=== PATIENT | male | born 1980 | race Caucasian/White ===

== ENCOUNTER 2023-05-29 17:29 | Emergency (ER) | payer MEDICARE, MEDICAID, SELFPAY ==
[2023-05-29] VITALS (45 sets, daily range): BP systolic 58–137; BP diastolic 37–115; PULSE 109–121; RESP 18–35; TEMP 37.2–37.5; O2SAT 85–96
--- NOTE | 2023-05-29 18:04 | CT_ITS ---
The [address] [address] Patient Name: JOAO PAYNE MRN: [facility]:[id number] date: 1980 Sex: M Assigned Patient Location: ED.MAIN Current Patient Location: Accession/Order Number: [id number] Exam Date: 05/29/2023 18:25 Report Date: 05/29/2023 19:30 At the request of: KIM MCNULTY Procedure: CT head/brain wo con EXAM: CT head/brain wo con, CT cervical spine wo con, CT facial bones wo con HISTORY: Fall COMPARISON: None. TECHNIQUE: Axial CT scans through the head, facial bones and cervical spine were obtained without IV contrast administration. Dose reduction techniques were achieved by using: automated exposure control and/or adjustment of mA and /or kV according to patient size and/or use of iterative reconstruction technique. CT BRAIN FINDINGS: There is no evidence of acute intracranial hemorrhage or abnormal extra-axial fluid collection. No mass effect or midline shift is seen. There is no evidence of large acute territorial infarction. There is no hydrocephalus. No definite acute fracture is identified. Soft tissues are unremarkable. CT/CT head/brain wo con IMPRESSION: No CT evidence of acute intracranial abnormality. CT FACIAL FINDINGS: There is a slightly displaced noncomminuted fracture of the anterior nasal septum, best seen on axial images (series 13 image 58, 59). The globes are intact bilaterally. There is no retrobulbar hematoma. The soft tissues are unremarkable. The visualized paranasal sinuses show no air-fluid level. There is mild mucosal thickening of bilateral maxillary sinuses and ethmoid air cells. Mastoid air cells are clear. IMPRESSION: Slightly displaced acute noncomminuted fracture of the anterior nasal septum. CT CERVICAL SPINE FINDINGS: No acute fracture or posttraumatic malalignment is seen. There is straightening of the normal cervical lordotic curvature. There are multilevel marginal osteophytes, most prominent at C5-7 levels.. There are mild to moderate multilevel facet arthropathy. There are multilevel small disc osteophyte complexes from C3 through C7 resulting in mild effacement of ventral CSF. No significant central canal narrowing is seen. There are multilevel neural foraminal narrowing, moderate at left C5-6 and mild at right C3-4, right C4-5, right C5-6 levels, secondary to uncovertebral hypertrophy and facet arthropathy. The prevertebral soft tissue space appears normal. Visualized neck shows no adenopathy. There are a few small low-attenuation nodules in left thyroid lobe. Visualized lung apices are clear. IMPRESSION: No acute fracture or posttraumatic malalignment. Straightening of cervical lordosis, may be related to positioning or muscle spasm. Cervical spondylosis, as described. Incidental note of small low-attenuation nodules in left thyroid lobe. Nonemergent thyroid ultrasound is recommended. Electronically authenticated by: ROBB VAZQUEZ Date: 05/29/2023 19:30
--- NOTE | 2023-05-29 18:04 | XR_ITS ---
The [address] [address] Patient Name: JOAO PAYNE MRN: [id number] date: 1980 Sex: M Assigned Patient Location: ED.MAIN Current Patient Location: ER Accession/Order Number: [id number] Exam Date: 05/29/2023 18:25 Report Date: 05/29/2023 19:08 At the request of: KIM MCNULTY Procedure: XR chest 1V EXAMINATION: XR chest 1V HISTORY: Fall COMPARISON: Portable chest 12/15/2022 TECHNIQUE: Portable chest FINDINGS: The lung parenchyma is free of consolidation or infiltrate. No pneumothorax or pleural effusion. The cardiac, mediastinal and hilar contours are normal. The visualized osseous structures exhibit no gross abnormality. XR/XR chest 1V IMPRESSION: No acute cardiopulmonary abnormality. Electronically authenticated by: MICHAEL COX Date: 05/29/2023 19:08
--- NOTE | 2023-05-29 18:04 | CT_ITS ---
The [address] [address] Patient Name: JOAO PAYNE MRN: [facility]:[id number] date: 1980 Sex: M Assigned Patient Location: ED.MAIN Current Patient Location: Accession/Order Number: [id number] Exam Date: 05/29/2023 18:25 Report Date: 05/29/2023 19:30 At the request of: KIM MCNULTY Procedure: CT facial bones wo con EXAM: CT head/brain wo con, CT cervical spine wo con, CT facial bones wo con HISTORY: Fall COMPARISON: None. TECHNIQUE: Axial CT scans through the head, facial bones and cervical spine were obtained without IV contrast administration. Dose reduction techniques were achieved by using: automated exposure control and/or adjustment of mA and /or kV according to patient size and/or use of iterative reconstruction technique. CT BRAIN FINDINGS: There is no evidence of acute intracranial hemorrhage or abnormal extra-axial fluid collection. No mass effect or midline shift is seen. There is no evidence of large acute territorial infarction. There is no hydrocephalus. No definite acute fracture is identified. Soft tissues are unremarkable. CT/CT facial bones wo con IMPRESSION: No CT evidence of acute intracranial abnormality. CT FACIAL FINDINGS: There is a slightly displaced noncomminuted fracture of the anterior nasal septum, best seen on axial images (series 13 image 58, 59). The globes are intact bilaterally. There is no retrobulbar hematoma. The soft tissues are unremarkable. The visualized paranasal sinuses show no air-fluid level. There is mild mucosal thickening of bilateral maxillary sinuses and ethmoid air cells. Mastoid air cells are clear. IMPRESSION: Slightly displaced acute noncomminuted fracture of the anterior nasal septum. CT CERVICAL SPINE FINDINGS: No acute fracture or posttraumatic malalignment is seen. There is straightening of the normal cervical lordotic curvature. There are multilevel marginal osteophytes, most prominent at C5-7 levels.. There are mild to moderate multilevel facet arthropathy. There are multilevel small disc osteophyte complexes from C3 through C7 resulting in mild effacement of ventral CSF. No significant central canal narrowing is seen. There are multilevel neural foraminal narrowing, moderate at left C5-6 and mild at right C3-4, right C4-5, right C5-6 levels, secondary to uncovertebral hypertrophy and facet arthropathy. The prevertebral soft tissue space appears normal. Visualized neck shows no adenopathy. There are a few small low-attenuation nodules in left thyroid lobe. Visualized lung apices are clear. IMPRESSION: No acute fracture or posttraumatic malalignment. Straightening of cervical lordosis, may be related to positioning or muscle spasm. Cervical spondylosis, as described. Incidental note of small low-attenuation nodules in left thyroid lobe. Nonemergent thyroid ultrasound is recommended. Electronically authenticated by: ROBB VAZQUEZ Date: 05/29/2023 19:30
--- NOTE | 2023-05-29 18:04 | CT_ITS ---
The [address] [address] Patient Name: JOAO PAYNE MRN: [facility]:[id number] date: 1980 Sex: M Assigned Patient Location: ED.MAIN Current Patient Location: Accession/Order Number: [id number] Exam Date: 05/29/2023 18:25 Report Date: 05/29/2023 19:30 At the request of: KIM MCNULTY Procedure: CT cervical spine wo con EXAM: CT head/brain wo con, CT cervical spine wo con, CT facial bones wo con HISTORY: Fall COMPARISON: None. TECHNIQUE: Axial CT scans through the head, facial bones and cervical spine were obtained without IV contrast administration. Dose reduction techniques were achieved by using: automated exposure control and/or adjustment of mA and /or kV according to patient size and/or use of iterative reconstruction technique. CT BRAIN FINDINGS: There is no evidence of acute intracranial hemorrhage or abnormal extra-axial fluid collection. No mass effect or midline shift is seen. There is no evidence of large acute territorial infarction. There is no hydrocephalus. No definite acute fracture is identified. Soft tissues are unremarkable. CT/CT cervical spine wo con IMPRESSION: No CT evidence of acute intracranial abnormality. CT FACIAL FINDINGS: There is a slightly displaced noncomminuted fracture of the anterior nasal septum, best seen on axial images (series 13 image 58, 59). The globes are intact bilaterally. There is no retrobulbar hematoma. The soft tissues are unremarkable. The visualized paranasal sinuses show no air-fluid level. There is mild mucosal thickening of bilateral maxillary sinuses and ethmoid air cells. Mastoid air cells are clear. IMPRESSION: Slightly displaced acute noncomminuted fracture of the anterior nasal septum. CT CERVICAL SPINE FINDINGS: No acute fracture or posttraumatic malalignment is seen. There is straightening of the normal cervical lordotic curvature. There are multilevel marginal osteophytes, most prominent at C5-7 levels.. There are mild to moderate multilevel facet arthropathy. There are multilevel small disc osteophyte complexes from C3 through C7 resulting in mild effacement of ventral CSF. No significant central canal narrowing is seen. There are multilevel neural foraminal narrowing, moderate at left C5-6 and mild at right C3-4, right C4-5, right C5-6 levels, secondary to uncovertebral hypertrophy and facet arthropathy. The prevertebral soft tissue space appears normal. Visualized neck shows no adenopathy. There are a few small low-attenuation nodules in left thyroid lobe. Visualized lung apices are clear. IMPRESSION: No acute fracture or posttraumatic malalignment. Straightening of cervical lordosis, may be related to positioning or muscle spasm. Cervical spondylosis, as described. Incidental note of small low-attenuation nodules in left thyroid lobe. Nonemergent thyroid ultrasound is recommended. Electronically authenticated by: ROBB VAZQUEZ Date: 05/29/2023 19:30
--- NOTE | 2023-05-29 18:04 | ECG_ITS ---
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
--- NOTE | 2023-05-29 18:11 | XR_ITS ---
The [address] [address] Patient Name: JOAO PAYNE MRN: [id number] date: 1980 Sex: M Assigned Patient Location: ED.MAIN Current Patient Location: ER Accession/Order Number: [id number] Exam Date: 05/29/2023 18:25 Report Date: 05/29/2023 19:27 At the request of: KIM MCNULTY Procedure: XR hand RT min 3V EXAM: XR hand RT min 3V HISTORY: fall COMPARISON: None. TECHNIQUE: 3 view study FINDINGS: There is a proximal phalanx fracture of the thumb with comminution. At least one fracture line intersects the proximal articular margin. Other bony structures are intact. Joint spaces are satisfactorily maintained. Soft tissue swelling about the thumb is noted. XR/XR hand RT min 3V IMPRESSION: Comminuted proximal phalanx fracture of the thumb. Electronically authenticated by: Florence GARDUNO Date: 05/29/2023 19:27
[2023-05-29] MEDS: 0.9 % SODIUM CHLORIDE 1,000 ML 1000 ML IV ×2 (18:20→22:56)
--- NOTE | 2023-05-29 18:22 | ED_ITS ---
Documented by User: JOSE Nath 05/29/23 22:08 HPI - General Adult General Chief complaint: Fall Stated complaint: FEVER Time Seen by Provider: 05/29/23 18:04 Source: caregiver Source information: Pt lives in a Residence with 24 hour caregivers. Mode of arrival: Wheelchair Limitations: altered mental status and physical limitation History of Present Illness HPI narrative: patient is a 42-year-old male with a history of developmental delay presents to the emergency department with his caregiver for the evaluation of fever, generalized weakness. Caregiver provides the history. apparently the patient had a similar presentation in the past when he had a urinary tract infection. He had a fall several days ago and injured his face, caregiver states he fell again today in the bathroom. He is typically able to ambulate on his own but has required significant help with ambulation today because of his generalized weakness. He is nonverbal but cooperative. Tylenol was given several hours ago for fever. He has not had any vomiting or upper respiratory symptoms. Related Data Home Medications Medication Instructions Recorded Confirmed cetirizine 10 mg tablet 10 mg PO DAILY 05/29/23 05/29/23 divalproex 500 mg tablet,extended 500 mg PO BID 05/29/23 05/29/23 release 24 hr docusate sodium 100 mg capsule 100 mg PO DAILY 05/29/23 05/29/23 levetiracetam 500 mg tablet 500 mg PO BID 05/29/23 05/29/23 lorazepam 1 mg tablet 1 mg PO .Evening daily 05/29/23 05/29/23 olanzapine 10 mg tablet 10 mg PO BID 05/29/23 05/29/23 polyethylene glycol 3350 17 gram 17 g PO DAILY 05/29/23 05/29/23 oral powder packet primidone 50 mg tablet 50 mg PO BID 05/29/23 05/29/23 topiramate 25 mg tablet 25 mg PO BID 05/29/23 05/29/23 Allergies Allergy/AdvReac Type Severity Reaction Status Date / Time codeine AdvReac Mild Verified 05/29/23 22:31 Review of Systems ROS Narrative review of systems is limited by the patient's developmental delay Constitutional Reports: fever Respiratory Denies: shortness of breath or cough Gastrointestinal Denies: nausea or vomiting Integumentary/Breast Denies: rash PFSH PFSH Social History Smoking status: Never smoker Exam Narrative Exam Narrative: Gen.: Awake, alert, in no distress Head: Normocephalic, dried epistaxis to the bilateral nostrils with ecchymosis under the bilateral orbits. ENT: Moist mucous membranes, no injury to the teeth Respiratory: No respiratory distress, lungs clear bilaterally Cardio: tachycardia Gastrointestinal: Abdomen is soft, nondistended and nontender to palpation Extremities: Moves extremities equally, no injuries noted, pelvis is stable, no obvious deformity of the extremities. Right thumb with diffuse ecchymosis at the IP joint. Contractures noted of the hands so range of motion is limited. Psych: Normal mood and affect Neuro: nonverbal, developmentally delayed, cooperative Skin: Warm, dry, intact Constitutional Vital Signs, click to edit/add: Last Vital Signs Temp 99.0 F 05/29/23 19:50 Pulse 121 H 05/30/23 00:50 Resp 33 H 05/30/23 00:50 BP 91/70 05/30/23 00:45 Pulse Ox 96 05/29/23 23:30 O2 Del Method Room Air 05/29/23 19:50 O2 Flow Rate 2 05/29/23 23:30 Course Vital Signs Vital signs: Vital Signs Temperature 99.5 F 05/29/23 17:48 Pulse Rate 121 H 05/29/23 17:48 Respiratory Rate 18 05/29/23 17:48 Pulse Oximetry 96 05/29/23 17:48 Oxygen Delivery Method Room Air 05/29/23 17:48 Temperature 99.0 F 05/29/23 19:50 Pulse Rate 121 H 05/30/23 00:50 Respiratory Rate 33 H 05/30/23 00:50 Blood Pressure 91/70 05/30/23 00:45 Pulse Oximetry 96 05/29/23 23:30 Oxygen Delivery Method Room Air 05/29/23 19:50 Oxygen Delivery Flow Rate 2 05/29/23 23:30 Medical Decision Making MDM Narrative Medical decision making narrative: On arrival to the Emergency Room, patient was treated with 30 mg/kg fluid bolus as well as Tylenol, IV Rocephin for antibiotic coverage. Sepsis orders were completed, blood cultures are pending. We had difficulty obtaining a urine specimen, straight catheter was performed without success so external collection was attempted. Covid swab is negative, chest x-ray with no evidence of acute cardiopulmonary changes. EKG was sinus tachycardia. CT of the head, facial bones and cervical spine were performed showing nasal bone fractures with no other acute process. As the patient remained tachycardic and borderline hypotensive, additional images were ordered of his chest and abdomen and pelvis to rule out other acute abnormalities that may be missed. CTA of the chest shows the patient has no evidence of PE or other acute abnormalities. CT of the abdomen and pelvis with IV contrast shows the patient has significant constipation and fecal impaction. He is also noted to have a fracture of his left femur. Additional x-ray studies are ordered. As a result the patient is not appropriate for this facility and will need to be transferred. 2210: Case is turned over to attending physician for disposition at this time pending additional xrays and transfer. Medical Records Medical records reviewed: Yes I reviewed the patient's medical records Lab Data Lab results reviewed: Yes I reviewed the patient's lab results Labs: Lab Results 05/29/23 05/29/23 05/29/23 Range/Units 18:18 18:24 19:25 WBC 19.9 H (4.0-11.0) 10^3/uL RBC 3.66 L (4.70-6.10) 10^6/uL Hgb 11.3 L (14.0-18.0) g/dL Hct 33.1 L (42.0-54.0) % MCV 90.4 (80.0-94.0) fL MCH 30.9 (25.9-34.0) pg MCHC 34.1 (29.9-35.2) g/dL RDW 15.2 H (11.0-15.0) % Plt Count 175 (150-450) 10^3/uL MPV 10.6 (9.5-13.5) fL Seg Neuts % (Manual) 74.0 Band Neutrophils % 1.0 (0-5) % Lymphocytes % (Manual) 3.0 L (20.5-60.0) % Atypical Lymphs % (Man) 3.0 % Monocytes % (Manual) 13.0 H (1.7-12.0) % Eosinophils % (Manual) 6.0 (0.9-7.0) % Basophils % (Manual) 0.0 L (0.2-2.0) % Neutrophils # (Manual) 14.72 H (1.4-6.5) 10^3/uL Band Neutrophils # 0.2 (0.0-0.3) 10^3/uL Lymphocytes # (Manual) 0.59 L (1.20-3.80) 10^3/uL Abs Atypical Lymphs Man 0.6 Monocytes # (Manual) 2.58 H (0.30-0.80) 10^3/uL Eosinophils # (Manual) 1.19 H (0.00-0.70) 10^3/uL Basophils # (Manual) 0.00 (0.00-0.10) 10^3/uL PT 11.3 (9.0-11.6) sec INR 1.07 APTT 27.3 (22.3-36.2) sec VBG pH 7.422 (7.330-7.430) VBG pCO2 35.5 L (40.0-52.0) mmHg Sodium 139 (136-145) mmol/L Potassium 3.5 (3.5-5.1) mmol/L Chloride 104 (98-107) mmol/L Carbon Dioxide 24.0 (21.0-32.0) mmol/L Anion Gap 14.5 BUN 19.0 H (7.0-18.0) mg/dL Creatinine 1.40 H (0.70-1.30) mg/dL Est GFR ( Amer) >60 (>=60) Est GFR (Non-Af Amer) 55 L (>=60) BUN/Creatinine Ratio 13.6 Glucose 107 H (74-106) mg/dL Lactate 2.3 H* (0.4-2.0) mmol/L Calcium 8.4 L (8.5-10.1) mg/dL Total Bilirubin 0.6 (0.2-1.0) mg/dL AST 460 H (15-37) U/L ALT 294 H (16-63) U/L Alkaline Phosphatase 143 H (46-116) U/L Total Protein 6.6 (6.4-8.2) g/dL Albumin 3.0 L (3.4-5.0) g/dL Globulin 3.6 g/dL Albumin/Globulin Ratio 0.8 SARS-CoV-2 (PCR) Negative (NEGATIVE) SARS-CoV-2 RNA (SUSY) Not detected (NOT DETECTE) 05/29/23 Range/Units 21:49 WBC (4.0-11.0) 10^3/uL RBC (4.70-6.10) 10^6/uL Hgb (14.0-18.0) g/dL Hct (42.0-54.0) % MCV (80.0-94.0) fL MCH (25.9-34.0) pg MCHC (29.9-35.2) g/dL RDW (11.0-15.0) % Plt Count (150-450) 10^3/uL MPV (9.5-13.5) fL Seg Neuts % (Manual) Band Neutrophils % (0-5) % Lymphocytes % (Manual) (20.5-60.0) % Atypical Lymphs % (Man) % Monocytes % (Manual) (1.7-12.0) % Eosinophils % (Manual) (0.9-7.0) % Basophils % (Manual) (0.2-2.0) % Neutrophils # (Manual) (1.4-6.5) 10^3/uL Band Neutrophils # (0.0-0.3) 10^3/uL Lymphocytes # (Manual) (1.20-3.80) 10^3/uL Abs Atypical Lymphs Man Monocytes # (Manual) (0.30-0.80) 10^3/uL Eosinophils # (Manual) (0.00-0.70) 10^3/uL Basophils # (Manual) (0.00-0.10) 10^3/uL PT (9.0-11.6) sec INR APTT (22.3-36.2) sec VBG pH (7.330-7.430) VBG pCO2 (40.0-52.0) mmHg Sodium (136-145) mmol/L Potassium (3.5-5.1) mmol/L Chloride (98-107) mmol/L Carbon Dioxide (21.0-32.0) mmol/L Anion Gap BUN (7.0-18.0) mg/dL Creatinine (0.70-1.30) mg/dL Est GFR ( Amer) (>=60) Est GFR (Non-Af Amer) (>=60) BUN/Creatinine Ratio Glucose (74-106) mg/dL Lactate 1.6 (0.4-2.0) mmol/L Calcium (8.5-10.1) mg/dL Total Bilirubin (0.2-1.0) mg/dL AST (15-37) U/L ALT (16-63) U/L Alkaline Phosphatase (46-116) U/L Total Protein (6.4-8.2) g/dL Albumin (3.4-5.0) g/dL Globulin g/dL Albumin/Globulin Ratio SARS-CoV-2 (PCR) (NEGATIVE) SARS-CoV-2 RNA (SUSY) (NOT DETECTE) Imaging Data CT scan - head: Attestation: I have reviewed the pertinent imaging results. Radiologist's impression: Procedure: CT head/brain wo con EXAM: CT head/brain wo con, CT cervical spine wo con, CT facial bones wo con HISTORY: Fall COMPARISON: None. TECHNIQUE: Axial CT scans through the head, facial bones and cervical spine were obtained without IV contrast administration. Dose reduction techniques were achieved by using: automated exposure control and/or adjustment of mA and /or kV according to patient size and/or use of iterative reconstruction technique. CT BRAIN FINDINGS: There is no evidence of acute intracranial hemorrhage or abnormal extra-axial fluid collection. No mass effect or midline shift is seen. There is no evidence of large acute territorial infarction. There is no hydrocephalus. No definite acute fracture is identified. Soft tissues are unremarkable. IMPRESSION: No CT evidence of acute intracranial abnormality. CT FACIAL FINDINGS: There is a slightly displaced noncomminuted fracture of the anterior nasal septum, best seen on axial images (series 13 image 58, 59). The globes are intact bilaterally. There is no retrobulbar hematoma. The soft tissues are unremarkable. The visualized paranasal sinuses show no air-fluid level. There is mild mucosal thickening of bilateral maxillary sinuses and ethmoid air cells. Mastoid air cells are clear. IMPRESSION: Slightly displaced acute noncomminuted fracture of the anterior nasal septum. CT CERVICAL SPINE FINDINGS: No acute fracture or posttraumatic malalignment is seen. There is straightening of the normal cervical lordotic curvature. There are multilevel marginal osteophytes, most prominent at C5-7 levels.. There are mild to moderate multilevel facet arthropathy. There are multilevel small disc osteophyte complexes from C3 through C7 resulting in mild effacement of ventral CSF. No significant central canal narrowing is seen. There are multilevel neural foraminal narrowing, moderate at left C5-6 and mild at right C3-4, right C4-5, right C5-6 levels, secondary to uncovertebral hypertrophy and facet arthropathy. The prevertebral soft tissue space appears normal. Visualized neck shows no adenopathy. There are a few small low-attenuation nodules in left thyroid lobe. Visualized lung apices are clear. IMPRESSION: No acute fracture or posttraumatic malalignment. Straightening of cervical lordosis, may be related to positioning or muscle spasm. Cervical spondylosis, as described. Incidental note of small low-attenuation nodules in left thyroid lobe. Nonemergent thyroid ultrasound is recommended. Electronically authenticated by: ROBB VAZQUEZ Date: 05/29/2023 19:30 CT scan - chest: Attestation: I have reviewed the pertinent imaging results. Radiologist's impression: Procedure: CT angio chest EXAM: CT pulmonary angiogram of the chest using 100 mL of IV iodinated contrast. 3-D imaging was performed. Dose reduction technique used: Automated exposure control and/or adjustment of the mA and/or kV according to patient size and/or use of iterative reconstruction technique. REASON FOR EXAM: PE COMPARISON: None FINDINGS: No central or segmental pulmonary emboli. Respiratory motion artifact prevents adequate evaluation of the subsegmental pulmonary artery branches. No aortic dissection. No pneumothorax. No acute airspace opacities. No pleural effusion. No acute fractures. No concerning pulmonary nodules. No definite lymphadenopathy in the chest. Remainder unremarkable. IMPRESSION: No central or segmental pulmonary embolism or acute abnormalities in chest. Electronically authenticated by: NACHO ESCOBAR Date: 05/29/2023 21:36 CT scan - abdomen: Attestation: I have reviewed the pertinent imaging results. Radiologist's impression: Procedure: CT abdomen pelvis w con EXAMINATION: CT ABDOMEN AND PELVIS WITH IV CONTRAST CLINICAL HISTORY: Fever TECHNIQUE: CT of the abdomen and pelvis was performed using standard technique, scanning from just above the dome of the diaphragm to the symphysis pubis. All CT scans at this facility use dose modulation, iterative reconstruction, and/or weight based dosing when appropriate to reduce radiation dose to as low as reasonably achievable. Contrast: IV: 100 ml of Omnipaque 350 COMPARISON: None. RESULT: Liver: No mass. Biliary: No bile duct dilation. Gallbladder is unremarkable. Spleen: No mass. No splenomegaly. Pancreas: No mass or duct dilation. Adrenals: No mass. Kidneys: Renal atrophy with left kidney compensatory hypertrophy. No suspicious mass or abnormal focus of enhancement. 11 mm left inferior pole simple cyst. No renal calculi or hydronephrosis. GI tract: Extensive colonic stool with fecal impaction and rectal dilation up to 11 cm. Mild rectal wall thickening with mild surrounding soft tissue stranding, concerning for stercoral colitis. Appendix is unremarkable. Lymph nodes: No abdominal or pelvic lymphadenopathy. Mesentery/Peritoneum: No ascites or mass. Retroperitoneum: No mass. Vasculature: The celiac axis and SMA are patent. The portal vein and branches, splenic vein, SMV, and hepatic veins are patent. No abdominal aortic aneurysm. Pelvis: No mass, ascites or fluid collection. Decompression of bladder with diffuse wall thickening. Bones/Soft Tissues: Nondisplaced comminuted fracture greater tuberosity left femur with moderate surrounding soft tissue stranding and adjacent fluid collection, likely a hematoma (series 6 image 164, series 14 image 59). Lower thorax: Bibasilar atelectasis. IMPRESSION: 1. Extensive colonic stool with fecal impaction and rectal dilation up to 11 cm. Mild rectal wall thickening and soft tissue stranding, concerning for stercoral colitis. 2. Nondisplaced comminuted fracture left femur greater tuberosity with small fluid collection within the adjacent soft tissues. Electronically authenticated by: SILVESTRE HERNANDEZ Date: 05/29/2023 21:52 ECG Data Attestation: I personally reviewed and interpreted this ECG as follows: (sinus tachycardia at a rate of 112, no acute ST elevation or ectopy. EKG reviewed by attending physician) Discharge Plan Discharge Chief Complaint: Fall Clinical Impression: Fever, Closed head injury, Fracture of nasal bone, Generalized weakness, Fracture of phalanx of right thumb, Sepsis Patient Disposition: [facility] Discharge Location: [facility] [place] Discharge Date/Time: 05/30/23 01:16 Documented by User: Dean Smith MD 05/30/23 01:15 HPI - General Adult General Chief complaint: Fall Stated complaint: FEVER Time Seen by Provider: 05/29/23 18:04 Related Data Home Medications Medication Instructions Recorded Confirmed cetirizine 10 mg tablet 10 mg PO DAILY 05/29/23 05/29/23 divalproex 500 mg tablet,extended 500 mg PO BID 05/29/23 05/29/23 release 24 hr docusate sodium 100 mg capsule 100 mg PO DAILY 05/29/23 05/29/23 levetiracetam 500 mg tablet 500 mg PO BID 05/29/23 05/29/23 lorazepam 1 mg tablet 1 mg PO .Evening daily 05/29/23 05/29/23 olanzapine 10 mg tablet 10 mg PO BID 05/29/23 05/29/23 polyethylene glycol 3350 17 gram 17 g PO DAILY 05/29/23 05/29/23 oral powder packet primidone 50 mg tablet 50 mg PO BID 05/29/23 05/29/23 topiramate 25 mg tablet 25 mg PO BID 05/29/23 05/29/23 Allergies Allergy/AdvReac Type Severity Reaction Status Date / Time codeine AdvReac Mild Verified 05/29/23 22:31 PFSH PFS Social History Smoking status: Never smoker Exam Constitutional Vital Signs, click to edit/add: Last Vital Signs Temp 99.0 F 05/29/23 19:50 Pulse 121 H 05/30/23 00:50 Resp 33 H 05/30/23 00:50 BP 91/70 05/30/23 00:45 Pulse Ox 96 05/29/23 23:30 O2 Del Method Room Air 05/29/23 19:50 O2 Flow Rate 2 05/29/23 23:30 Course Vital Signs Vital signs: Vital Signs Temperature 99.5 F 05/29/23 17:48 Pulse Rate 121 H 05/29/23 17:48 Respiratory Rate 18 05/29/23 17:48 Pulse Oximetry 96 05/29/23 17:48 Oxygen Delivery Method Room Air 05/29/23 17:48 Temperature 99.0 F 05/29/23 19:50 Pulse Rate 121 H 05/30/23 00:50 Respiratory Rate 33 H 05/30/23 00:50 Blood Pressure 91/70 05/30/23 00:45 Pulse Oximetry 96 05/29/23 23:30 Oxygen Delivery Method Room Air 05/29/23 19:50 Oxygen Delivery Flow Rate 2 05/29/23 23:30 Medical Decision Making MDM Narrative Medical decision making narrative: On arrival to the Emergency Room, patient was treated with 30 mg/kg fluid bolus as well as Tylenol, IV Rocephin for antibiotic coverage. Sepsis orders were completed, blood cultures are pending. We had difficulty obtaining a urine specimen, straight catheter was performed without success so external collection was attempted. Covid swab is negative, chest x-ray with no evidence of acute cardiopulmonary changes. EKG was sinus tachycardia. CT of the head, facial bones and cervical spine were performed showing nasal bone fractures with no other acute process. As the patient remained tachycardic and borderline hypotensive, additional images were ordered of his chest and abdomen and pelvis to rule out other acute abnormalities that may be missed. CTA of the chest shows the patient has no evidence of PE or other acute abnormalities. CT of the abdomen and pelvis with IV contrast shows the patient has significant constipation and fecal impaction. He is also noted to have a fracture of his left femur. Additional x-ray studies are ordered. As a result the patient is not appropriate for this facility and will need to be transferred. 2210: Case is turned over to attending physician for disposition at this time pending additional xrays and transfer. care transferred at end of PA shift. Patient is septic . presumed urosepsis. Also has been falling over the past couple of days and has a fracture of his nose, right thumb and left greater tuberosity He has received 4L NS but remains hypotensive. Levophed drip ordered. care discussed with trauma surgeon at [facility] and patient accepted for transfer to ER Lab Data Labs: Lab Results 05/29/23 05/29/23 05/29/23 Range/Units 18:18 18:24 19:25 WBC 19.9 H (4.0-11.0) 10^3/uL RBC 3.66 L (4.70-6.10) 10^6/uL Hgb 11.3 L (14.0-18.0) g/dL Hct 33.1 L (42.0-54.0) % MCV 90.4 (80.0-94.0) fL MCH 30.9 (25.9-34.0) pg MCHC 34.1 (29.9-35.2) g/dL RDW 15.2 H (11.0-15.0) % Plt Count 175 (150-450) 10^3/uL MPV 10.6 (9.5-13.5) fL Seg Neuts % (Manual) 74.0 Band Neutrophils % 1.0 (0-5) % Lymphocytes % (Manual) 3.0 L (20.5-60.0) % Atypical Lymphs % (Man) 3.0 % Monocytes % (Manual) 13.0 H (1.7-12.0) % Eosinophils % (Manual) 6.0 (0.9-7.0) % Basophils % (Manual) 0.0 L (0.2-2.0) % Neutrophils # (Manual) 14.72 H (1.4-6.5) 10^3/uL Band Neutrophils # 0.2 (0.0-0.3) 10^3/uL Lymphocytes # (Manual) 0.59 L (1.20-3.80) 10^3/uL Abs Atypical Lymphs Man 0.6 Monocytes # (Manual) 2.58 H (0.30-0.80) 10^3/uL Eosinophils # (Manual) 1.19 H (0.00-0.70) 10^3/uL Basophils # (Manual) 0.00 (0.00-0.10) 10^3/uL PT 11.3 (9.0-11.6) sec INR 1.07 APTT 27.3 (22.3-36.2) sec VBG pH 7.422 (7.330-7.430) VBG pCO2 35.5 L (40.0-52.0) mmHg Sodium 139 (136-145) mmol/L Potassium 3.5 (3.5-5.1) mmol/L Chloride 104 (98-107) mmol/L Carbon Dioxide 24.0 (21.0-32.0) mmol/L Anion Gap 14.5 BUN 19.0 H (7.0-18.0) mg/dL Creatinine 1.40 H (0.70-1.30) mg/dL Est GFR ( Amer) >60 (>=60) Est GFR (Non-Af Amer) 55 L (>=60) BUN/Creatinine Ratio 13.6 Glucose 107 H (74-106) mg/dL Lactate 2.3 H* (0.4-2.0) mmol/L Calcium 8.4 L (8.5-10.1) mg/dL Total Bilirubin 0.6 (0.2-1.0) mg/dL AST 460 H (15-37) U/L ALT 294 H (16-63) U/L Alkaline Phosphatase 143 H (46-116) U/L Total Protein 6.6 (6.4-8.2) g/dL Albumin 3.0 L (3.4-5.0) g/dL Globulin 3.6 g/dL Albumin/Globulin Ratio 0.8 SARS-CoV-2 (PCR) Negative (NEGATIVE) SARS-CoV-2 RNA (SUSY) Not detected (NOT DETECTE) 05/29/23 Range/Units 21:49 WBC (4.0-11.0) 10^3/uL RBC (4.70-6.10) 10^6/uL Hgb (14.0-18.0) g/dL Hct (42.0-54.0) % MCV (80.0-94.0) fL MCH (25.9-34.0) pg MCHC (29.9-35.2) g/dL RDW (11.0-15.0) % Plt Count (150-450) 10^3/uL MPV (9.5-13.5) fL Seg Neuts % (Manual) Band Neutrophils % (0-5) % Lymphocytes % (Manual) (20.5-60.0) % Atypical Lymphs % (Man) % Monocytes % (Manual) (1.7-12.0) % Eosinophils % (Manual) (0.9-7.0) % Basophils % (Manual) (0.2-2.0) % Neutrophils # (Manual) (1.4-6.5) 10^3/uL Band Neutrophils # (0.0-0.3) 10^3/uL Lymphocytes # (Manual) (1.20-3.80) 10^3/uL Abs Atypical Lymphs Man Monocytes # (Manual) (0.30-0.80) 10^3/uL Eosinophils # (Manual) (0.00-0.70) 10^3/uL Basophils # (Manual) (0.00-0.10) 10^3/uL PT (9.0-11.6) sec INR APTT (22.3-36.2) sec VBG pH (7.330-7.430) VBG pCO2 (40.0-52.0) mmHg Sodium (136-145) mmol/L Potassium (3.5-5.1) mmol/L Chloride (98-107) mmol/L Carbon Dioxide (21.0-32.0) mmol/L Anion Gap BUN (7.0-18.0) mg/dL Creatinine (0.70-1.30) mg/dL Est GFR ( Amer) (>=60) Est GFR (Non-Af Amer) (>=60) BUN/Creatinine Ratio Glucose (74-106) mg/dL Lactate 1.6 (0.4-2.0) mmol/L Calcium (8.5-10.1) mg/dL Total Bilirubin (0.2-1.0) mg/dL AST (15-37) U/L ALT (16-63) U/L Alkaline Phosphatase (46-116) U/L Total Protein (6.4-8.2) g/dL Albumin (3.4-5.0) g/dL Globulin g/dL Albumin/Globulin Ratio SARS-CoV-2 (PCR) (NEGATIVE) SARS-CoV-2 RNA (SUSY) (NOT DETECTE) Discharge Plan Discharge Chief Complaint: Fall Clinical Impression: Fever, Closed head injury, Fracture of nasal bone, Generalized weakness, Fracture of phalanx of right thumb, Sepsis Patient Disposition: [facility] Discharge Location: [facility] [place] Discharge Date/Time: 05/30/23 01:16 Documented by User: Pete Wakefield MD 07/01/23 17:04 HPI - General Adult General Chief complaint: Fall Stated complaint: FEVER Time Seen by Provider: 05/29/23 18:04 Related Data Home Medications Medication Instructions Recorded Confirmed cetirizine 10 mg tablet 10 mg PO DAILY 05/29/23 05/29/23 divalproex 500 mg tablet,extended 500 mg PO BID 05/29/23 05/29/23 release 24 hr docusate sodium 100 mg capsule 100 mg PO DAILY 05/29/23 05/29/23 levetiracetam 500 mg tablet 500 mg PO BID 05/29/23 05/29/23 lorazepam 1 mg tablet 1 mg PO .Evening daily 05/29/23 05/29/23 olanzapine 10 mg tablet 10 mg PO BID 05/29/23 05/29/23 polyethylene glycol 3350 17 gram 17 g PO DAILY 05/29/23 05/29/23 oral powder packet primidone 50 mg tablet 50 mg PO BID 05/29/23 05/29/23 topiramate 25 mg tablet 25 mg PO BID 05/29/23 05/29/23 Allergies Allergy/AdvReac Type Severity Reaction Status Date / Time codeine AdvReac Mild Verified 05/29/23 22:31 PFSH PFS Social History Smoking status: Never smoker Exam Constitutional Vital Signs, click to edit/add: Last Vital Signs Temp 99.0 F 05/29/23 19:50 Pulse 121 H 05/30/23 00:50 Resp 33 H 05/30/23 00:50 BP 91/70 05/30/23 00:45 Pulse Ox 96 05/29/23 23:30 O2 Del Method Room Air 05/29/23 19:50 O2 Flow Rate 2 05/29/23 23:30 Course Vital Signs Vital signs: Vital Signs Temperature 99.5 F 05/29/23 17:48 Pulse Rate 121 H 05/29/23 17:48 Respiratory Rate 18 05/29/23 17:48 Pulse Oximetry 96 05/29/23 17:48 Oxygen Delivery Method Room Air 05/29/23 17:48 Temperature 99.0 F 05/29/23 19:50 Pulse Rate 121 H 05/30/23 00:50 Respiratory Rate 33 H 05/30/23 00:50 Blood Pressure 91/70 05/30/23 00:45 Pulse Oximetry 96 05/29/23 23:30 Oxygen Delivery Method Room Air 05/29/23 19:50 Oxygen Delivery Flow Rate 2 05/29/23 23:30 Medical Decision Making MDM Narrative Medical decision making narrative: On arrival to the Emergency Room, patient was treated with 30 mg/kg fluid bolus as well as Tylenol, IV Rocephin for antibiotic coverage. Sepsis orders were completed, blood cultures are pending. We had difficulty obtaining a urine specimen, straight catheter was performed without success so external collection was attempted. Covid swab is negative, chest x-ray with no evidence of acute cardiopulmonary changes. EKG was sinus tachycardia. CT of the head, facial bones and cervical spine were performed showing nasal bone fractures with no other acute process. As the patient remained tachycardic and borderline hypotensive, additional images were ordered of his chest and abdomen and pelvis to rule out other acute abnormalities that may be missed. CTA of the chest shows the patient has no evidence of PE or other acute abnormalities. CT of the abdomen and pelvis with IV contrast shows the patient has significant constipation and fecal impaction. He is also noted to have a fracture of his left femur. Additional x-ray studies are ordered. As a result the patient is not appropriate for this facility and will need to be transferred. 2210: Case is turned over to attending physician Dr Smith for disposition at this time pending additional xrays and transfer. care transferred at end of PA shift to Dr Smith. Patient is septic . presumed urosepsis. Also has been falling over the past couple of days and has a fracture of his nose, right thumb and left greater tuberosity He has received 4L NS but remains hypotensive. Levophed drip ordered. care discussed with trauma surgeon at [facility] and patient accepted for transfer to ER Lab Data Labs: Lab Results 05/29/23 05/29/23 05/29/23 Range/Units 18:18 18:24 19:25 WBC 19.9 H (4.0-11.0) 10^3/uL RBC 3.66 L (4.70-6.10) 10^6/uL Hgb 11.3 L (14.0-18.0) g/dL Hct 33.1 L (42.0-54.0) % MCV 90.4 (80.0-94.0) fL MCH 30.9 (25.9-34.0) pg MCHC 34.1 (29.9-35.2) g/dL RDW 15.2 H (11.0-15.0) % Plt Count 175 (150-450) 10^3/uL MPV 10.6 (9.5-13.5) fL Seg Neuts % (Manual) 74.0 Band Neutrophils % 1.0 (0-5) % Lymphocytes % (Manual) 3.0 L (20.5-60.0) % Atypical Lymphs % (Man) 3.0 % Monocytes % (Manual) 13.0 H (1.7-12.0) % Eosinophils % (Manual) 6.0 (0.9-7.0) % Basophils % (Manual) 0.0 L (0.2-2.0) % Neutrophils # (Manual) 14.72 H (1.4-6.5) 10^3/uL Band Neutrophils # 0.2 (0.0-0.3) 10^3/uL Lymphocytes # (Manual) 0.59 L (1.20-3.80) 10^3/uL Abs Atypical Lymphs Man 0.6 Monocytes # (Manual) 2.58 H (0.30-0.80) 10^3/uL Eosinophils # (Manual) 1.19 H (0.00-0.70) 10^3/uL Basophils # (Manual) 0.00 (0.00-0.10) 10^3/uL PT 11.3 (9.0-11.6) sec INR 1.07 APTT 27.3 (22.3-36.2) sec VBG pH 7.422 (7.330-7.430) VBG pCO2 35.5 L (40.0-52.0) mmHg Sodium 139 (136-145) mmol/L Potassium 3.5 (3.5-5.1) mmol/L Chloride 104 (98-107) mmol/L Carbon Dioxide 24.0 (21.0-32.0) mmol/L Anion Gap 14.5 BUN 19.0 H (7.0-18.0) mg/dL Creatinine 1.40 H (0.70-1.30) mg/dL Est GFR ( Amer) >60 (>=60) Est GFR (Non-Af Amer) 55 L (>=60) BUN/Creatinine Ratio 13.6 Glucose 107 H (74-106) mg/dL Lactate 2.3 H* (0.4-2.0) mmol/L Calcium 8.4 L (8.5-10.1) mg/dL Total Bilirubin 0.6 (0.2-1.0) mg/dL AST 460 H (15-37) U/L ALT 294 H (16-63) U/L Alkaline Phosphatase 143 H (46-116) U/L Total Protein 6.6 (6.4-8.2) g/dL Albumin 3.0 L (3.4-5.0) g/dL Globulin 3.6 g/dL Albumin/Globulin Ratio 0.8 SARS-CoV-2 (PCR) Negative (NEGATIVE) SARS-CoV-2 RNA (SUSY) Not detected (NOT DETECTE) 05/29/23 Range/Units 21:49 WBC (4.0-11.0) 10^3/uL RBC (4.70-6.10) 10^6/uL Hgb (14.0-18.0) g/dL Hct (42.0-54.0) % MCV (80.0-94.0) fL MCH (25.9-34.0) pg MCHC (29.9-35.2) g/dL RDW (11.0-15.0) % Plt Count (150-450) 10^3/uL MPV (9.5-13.5) fL Seg Neuts % (Manual) Band Neutrophils % (0-5) % Lymphocytes % (Manual) (20.5-60.0) % Atypical Lymphs % (Man) % Monocytes % (Manual) (1.7-12.0) % Eosinophils % (Manual) (0.9-7.0) % Basophils % (Manual) (0.2-2.0) % Neutrophils # (Manual) (1.4-6.5) 10^3/uL Band Neutrophils # (0.0-0.3) 10^3/uL Lymphocytes # (Manual) (1.20-3.80) 10^3/uL Abs Atypical Lymphs Man Monocytes # (Manual) (0.30-0.80) 10^3/uL Eosinophils # (Manual) (0.00-0.70) 10^3/uL Basophils # (Manual) (0.00-0.10) 10^3/uL PT (9.0-11.6) sec INR APTT (22.3-36.2) sec VBG pH (7.330-7.430) VBG pCO2 (40.0-52.0) mmHg Sodium (136-145) mmol/L Potassium (3.5-5.1) mmol/L Chloride (98-107) mmol/L Carbon Dioxide (21.0-32.0) mmol/L Anion Gap BUN (7.0-18.0) mg/dL Creatinine (0.70-1.30) mg/dL Est GFR ( Amer) (>=60) Est GFR (Non-Af Amer) (>=60) BUN/Creatinine Ratio Glucose (74-106) mg/dL Lactate 1.6 (0.4-2.0) mmol/L Calcium (8.5-10.1) mg/dL Total Bilirubin (0.2-1.0) mg/dL AST (15-37) U/L ALT (16-63) U/L Alkaline Phosphatase (46-116) U/L Total Protein (6.4-8.2) g/dL Albumin (3.4-5.0) g/dL Globulin g/dL Albumin/Globulin Ratio SARS-CoV-2 (PCR) (NEGATIVE) SARS-CoV-2 RNA (SUSY) (NOT DETECTE) Discharge Plan Discharge Chief Complaint: Fall Clinical Impression: Fever, Closed head injury, Fracture of nasal bone, Generalized weakness, Fracture of phalanx of right thumb, Sepsis Patient Disposition: [facility] Discharge Location: [facility] [place] Discharge Date/Time: 05/30/23 01:16
[2023-05-29 18:33] LABS: PCO2 VBG 35.5 mmHg (40.0-52.0); pH VBG 7.422 (7.330-7.430)
[2023-05-29 18:35] LABS: Hematocrit 33.1 % (42.0-54.0); Hemoglobin 11.3 g/dL (14.0-18.0); Mean Corpuscular HGB Conc 34.1 g/dL (29.9-35.2); Mean Corpuscular Hemoglobin 30.9 pg (25.9-34.0); Mean Corpuscular Volume 90.4 fL (80.0-94.0); Mean Platelet Volume 10.6 fL (9.5-13.5); Platelet Count 175 10^3/uL (150-450); Red Blood Count 3.66 10^6/uL (4.70-6.10); Red Cell Distribution Width 15.2 % (11.0-15.0); White Blood Count 19.9 10^3/uL (4.0-11.0)
[2023-05-29 18:49] LABS: INR 1.07; Partial Thromboplastin Time 27.3 sec (22.3-36.2); Prothrombin Time 11.3 sec (9.0-11.6)
[2023-05-29 18:57] LABS: Lactate/Lactic Acid 2.3 mmol/L (0.4-2.0)
[2023-05-29 18:58] LABS: Alanine Aminotransferase 294 U/L (16-63); Albumin Globulin Ratio 0.8; Alkaline Phosphatase 143 U/L (46-116); Anion Gap 14.5; Aspartate Amino Transferase 460 U/L (15-37); BUN Creatinine Ratio 13.6; Bilirubin Total 0.6 mg/dL (0.2-1.0); Calcium 8.4 mg/dL (8.5-10.1); Chloride 104 mmol/L (98-107); Estimated GFR (African America >60 (>=60); Estimated GFR (Non-African Ame 55 (>=60); Globulin 3.6 g/dL; Glucose 107 mg/dL (74-106); Potassium 3.5 mmol/L (3.5-5.1); Sodium 139 mmol/L (136-145); Total Protein 6.6 g/dL (6.4-8.2)
[2023-05-29] MEDS: 0.9 % SODIUM CHLORIDE 1,500 ML 1500 ML IV (19:09)
[2023-05-29 19:11] LABS: Atypical Lymphocytes Abs Man 0.6; Band Neutrophils Absolute 0.2 10^3/uL (0.0-0.3); Eosinophils Absolute Manual 1.19 10^3/uL (0.00-0.70); Lymphocytes Absolute Manual 0.59 10^3/uL (1.20-3.80); Monocytes Absolute Manual 2.58 10^3/uL (0.30-0.80); Segmented Neut Absolute Manual 14.72 10^3/uL (1.4-6.5)
[2023-05-29] MEDS: ACETAMINOPHEN 325 MG TABLET 650 MG PO (19:15)
[2023-05-29 19:44] LABS: SARS-CoV-2 Ag NEGATIVE (NEGATIVE)
[2023-05-29] MEDS: CEFTRIAXONE 1,000 MG in 0.9 % SODIUM CHLORIDE 50 ML 100 MG IV (19:44)
--- NOTE | 2023-05-29 20:29 | CT_ITS ---
[address] [address] Patient Name: JOAO PAYNE MRN: [id number] date: 1980 Sex: M Assigned Patient Location: ER Current Patient Location: ER Accession/Order Number: [id number] Exam Date: 05/29/2023 20:41 Report Date: 05/29/2023 21:36 At the request of: KIM MCNULTY Procedure: CT angio chest EXAM: CT pulmonary angiogram of the chest using 100 mL of IV iodinated contrast. 3-D imaging was performed. Dose reduction technique used: Automated exposure control and/or adjustment of the mA and/or kV according to patient size and/or use of iterative reconstruction technique. REASON FOR EXAM: PE COMPARISON: None FINDINGS: No central or segmental pulmonary emboli. Respiratory motion artifact prevents adequate evaluation of the subsegmental pulmonary artery branches. No aortic dissection. No pneumothorax. No acute airspace opacities. No pleural effusion. No acute fractures. No concerning pulmonary nodules. No definite lymphadenopathy in the chest. Remainder unremarkable. CT/CT angio chest IMPRESSION: No central or segmental pulmonary embolism or acute abnormalities in chest. Electronically authenticated by: NACHO ESCOBAR Date: 05/29/2023 21:36
--- NOTE | 2023-05-29 20:29 | CT_ITS ---
The [address] [address] Patient Name: JOAO PAYNE MRN: [id number] date: 1980 Sex: M Assigned Patient Location: ER Current Patient Location: ER Accession/Order Number: [id number] Exam Date: 05/29/2023 20:41 Report Date: 05/29/2023 21:52 At the request of: KIM MCNULTY Procedure: CT abdomen pelvis w con EXAMINATION: CT ABDOMEN AND PELVIS WITH IV CONTRAST CLINICAL HISTORY: Fever TECHNIQUE: CT of the abdomen and pelvis was performed using standard technique, scanning from just above the dome of the diaphragm to the symphysis pubis. All CT scans at this facility use dose modulation, iterative reconstruction, and/or weight based dosing when appropriate to reduce radiation dose to as low as reasonably achievable. Contrast: IV: 100 ml of Omnipaque 350 COMPARISON: None. RESULT: Liver: No mass. Biliary: No bile duct dilation. Gallbladder is unremarkable. Spleen: No mass. No splenomegaly. Pancreas: No mass or duct dilation. Adrenals: No mass. Kidneys: Renal atrophy with left kidney compensatory hypertrophy. No suspicious mass or abnormal focus of enhancement. 11 mm left inferior pole simple cyst. No renal calculi or hydronephrosis. GI tract: Extensive colonic stool with fecal impaction and rectal dilation up to 11 cm. Mild rectal wall thickening with mild surrounding soft tissue stranding, concerning for stercoral colitis. Appendix is unremarkable. Lymph nodes: No abdominal or pelvic lymphadenopathy. Mesentery/Peritoneum: No ascites or mass. Retroperitoneum: No mass. Vasculature: The celiac axis and SMA are patent. The portal vein and branches, splenic vein, SMV, and hepatic veins are patent. No abdominal aortic aneurysm. Pelvis: No mass, ascites or fluid collection. Decompression of bladder with diffuse wall thickening. Bones/Soft Tissues: Nondisplaced comminuted fracture greater tuberosity left femur with moderate surrounding soft tissue stranding and adjacent fluid collection, likely a hematoma (series 6 image 164, series 14 image 59). Lower thorax: Bibasilar atelectasis. CT/CT abdomen pelvis w con IMPRESSION: 1. Extensive colonic stool with fecal impaction and rectal dilation up to 11 cm. Mild rectal wall thickening and soft tissue stranding, concerning for stercoral colitis. 2. Nondisplaced comminuted fracture left femur greater tuberosity with small fluid collection within the adjacent soft tissues. Electronically authenticated by: SILVESTRE HERNANDEZ Date: 05/29/2023 21:52
--- NOTE | 2023-05-29 21:58 | XR_ITS ---
The [address] [address] Patient Name: JOAO PAYNE MRN: [id number] date: 1980 Sex: M Assigned Patient Location: ED.MAIN Current Patient Location: ED.MAIN Accession/Order Number: [id number] Exam Date: 05/29/2023 22:00 Report Date: 05/29/2023 22:32 At the request of: KIM MCNULTY Procedure: XR femur LT 2V EXAM: XR femur LT 2V HISTORY: Pain following fall COMPARISON: None. TECHNIQUE: 4 views FINDINGS: No osseous lesion, fracture, dislocation or subluxation. The left hip joint is unremarkable. Mild tricompartmental degenerative changes of the knee. No knee effusion. No visualized effusion. No visualized soft tissue edema. XR/XR femur LT 2V IMPRESSION: No visualized acute abnormality Electronically authenticated by: MICHAEL COX Date: 05/29/2023 22:32
[2023-05-29 22:22] LABS: Lactate/Lactic Acid 1.6 mmol/L (0.4-2.0)
[2023-05-29] MEDS: NOREPINEPHRINE BITARTRATE 4 MG in DEXTROSE 5 % IN WATER 250 ML 30.48 MG IV (23:12)
--- NOTE | 2023-05-29 23:52 | PC.NURSE ---
synthetic padding and quick splint applied to right thumb by physician, nurse in to assist. patient tolerated well.
[2023-05-30] VITALS (9 sets, daily range): BP systolic 91–96; BP diastolic 67–71; PULSE 114–121; RESP 26–35
[2023-05-30 15:19] LABS: SARS-CoV-2 NAA NOT DETECTED (NOT DETECTE)
== END 2023-05-30 01:16 | disposition short-term general hospital (02) ==
PROVIDERS: Physician Assistant; Emergency Provider Internal Medicine; PCP Family Medicine
DX: A41.9 Sepsis, unspecified organism (principal); R50.9 Fever, unspecified; S09.8XXA Other specified injuries of head, initial encounter; S02.2XXA Fracture of nasal bones, initial encounter for closed fracture; S62.511A Displaced fracture of proximal phalanx of right thumb, initial encounter for closed fracture; W19.XXXA Unspecified fall, initial encounter; K59.00 Constipation, unspecified; Z20.822 Contact with and (suspected) exposure to COVID-19; S72.92XA Unspecified fracture of left femur, initial encounter for closed fracture; R53.1 Weakness; Z91.81 History of falling; Z79.899 Other long term (current) drug therapy
CPT/HCPCS: 36415; 70450; 70486; 71045; 71275; 72125; 73130; 73552; 74177; 80053; 81003; 82800; 83605; 85027; 85610; 85730; 87040; 87635; 87811; 93005; 96374; 96375; 99285; Q9967